=== PATIENT | male | born 1975 | race Caucasian/White ===

== ENCOUNTER 2016-11-06 22:10 | Emergency (ER) | payer OTHER, BC ==
[~2016-11-06] VITALS: Ht 167.6 cm; Wt 84.9 kg
[~2016-11-06 22:10] MED LIST: NOHOMEMEDS
[2016-11-07 02:17] VITALS: BP 139/73
== END 2016-11-07 02:18 | disposition home or self-care (01) ==
LOC: EME → TRA 22:10 → EDBD 22:10 → EME 22:10 → TRA 11-07 02:18
PROC: 2W3MX1Z Immobilization of Left Lower Extremity using Splint (ICD-10-PCS; principal; 2016-11-07)
DX: S82.402A Unspecified fracture of shaft of left fibula, initial encounter for closed fracture (principal); S51.802A Unspecified open wound of left forearm, initial encounter; V49.09XA Driver injured in collision with other motor vehicles in nontraffic accident, initial encounter
CPT/HCPCS: 70450; 72125; 73090; 73130; 73564; 86703; 86706; 86803; 99281; 99284